=== PATIENT | female | born 1995 | race Caucasian/White ===

== ENCOUNTER 2021-12-29 05:51 | Inpatient (IN) ==
[2021-12-29] MEDS ORDERED: SCOPOLAMINE 1.5 MG PATCH TRANSDERM ONE (05:57)
[2021-12-29] MEDS ORDERED: HEPARIN 5,000 UNIT/1 ML VIAL ONE (05:57)
[2021-12-29] MEDS ORDERED: PANTOPRAZOLE 40 MG VIAL IV ONE (05:57)
[2021-12-29] MEDS ORDERED: HYOSCYAMINE 0.125 MG TABLET ONE (05:57)
[2021-12-29] MEDS ORDERED: ACETAMINOPHEN INJ 1,000 MG/100 ML VIAL IV ONE ×2 (05:58→06:27)
[2021-12-29] MEDS ORDERED: cefOXitin 3,000 MG in SYRINGE 1 EACH IV ONE (06:00)
[2021-12-29] MEDS ORDERED: LACTATED RINGERS 1,000 ML IV SCH (06:00)
[2021-12-29] MEDS ORDERED: SCOPOLAMINE 1.5 MG PATCH TRANSDERM STA (06:27)
[2021-12-29] MEDS ORDERED: HYOSCYAMINE 0.125 MG TABLET PO STA (06:27)
[2021-12-29] MEDS ORDERED: HEPARIN 5,000 UNIT/1 ML VIAL SUBCUT STA (06:29)
[2021-12-29] MEDS ORDERED: PANTOPRAZOLE 40 MG VIAL IV STA (06:29)
[2021-12-29] MEDS ORDERED: ONDANSETRON 4 MG/2 ML VIAL ONE (06:34)
[2021-12-29] MEDS ORDERED: propofoL 200 MG/20 ML VIAL IV ONE (06:34)
[2021-12-29] MEDS ORDERED: LIDOCAINE 2% 5 ML VIAL ONE (06:34)
[2021-12-29] MEDS ORDERED: ROCURONIUM 50 MG/5 ML VIAL IV ONE (06:34)
[2021-12-29] MEDS ORDERED: DEXAMETHASONE 4 MG/1 ML VIAL ONE (06:34)
[2021-12-29] MEDS ORDERED: fentaNYL 100 MCG/2 ML VIAL ONE ×2 (06:35→07:39)
[2021-12-29] MEDS ORDERED: MIDAZOLAM 2 MG/2 ML VIAL ONE (06:35)
[2021-12-29] MEDS ORDERED: GABAPENTIN 400 MG CAPSULE PO ONE (06:37)
[2021-12-29] MEDS ORDERED: DIAZEPAM 5 MG TABLET PO ONE (06:37)
[2021-12-29] MEDS ORDERED: FAMOTIDINE 20 MG TABLET PO ONE (06:37)
[2021-12-29] MEDS ORDERED: BUPIVACAINE MPF 0.25% 10 ML VIAL ONE (06:43)
[2021-12-29] MEDS ORDERED: LIDOCAINE 1%/EPI INJ 20 ML VIAL ONE (06:43)
[2021-12-29] MEDS ORDERED: TISSUE ADHESIVE 1 EACH APPLICATOR TOP ONE (06:43)
[2021-12-29] MEDS ORDERED: BUPIVACAINE LIPOSOMAL 20 ML/266 MG VIAL ONE (06:44)
[2021-12-29] MEDS ORDERED: INDOCYANINE GREEN 25 MG VIAL IV ONE (08:01)
[2021-12-29] MEDS ORDERED: NEOSTIGMINE 10 MG/10 ML VIAL ONE (08:11)
[2021-12-29] MEDS ORDERED: SEVOFLURANE 1 UNIT/15 MINUTE INH ONE (08:16)
[2021-12-29] MEDS ORDERED: PROMETHAZINE 25 MG/1 ML VIAL ONE (08:43)
[2021-12-29] MEDS ORDERED: ONDANSETRON 4 MG/2 ML VIAL IV PRN ×2 (08:44→09:04)
[2021-12-29] MEDS ORDERED: diphenhydrAMINE 50 MG/1 ML VIAL IV PRN (08:44)
[2021-12-29] MEDS ORDERED: HYDROmorphone 1 MG/1 ML SYRINGE IV PRN (08:44)
[2021-12-29] MEDS ORDERED: PROMETHAZINE INJ 25 MG in SODIUM CHLORIDE 0.9% 50 ML IV PRN (08:44)
[2021-12-29] MEDS ORDERED: MEPERIDINE 50 MG/1 ML VIAL ONE (08:52)
[2021-12-29] MEDS: MEPERIDINE 25 MG/1 ML VIAL IV PRN ×2 (09:00→09:15)
[2021-12-29] MEDS ORDERED: MORPHINE 2 MG/1 ML SYRINGE IV PRN (09:04)
[2021-12-29] MEDS ORDERED: hydrALAZINE 20 MG/1 ML VIAL IV PRN (09:04)
[2021-12-29] MEDS ORDERED: GLUCAGON 1 MG VIAL IM PRN (09:06)
[2021-12-29] MEDS: LACTATED RINGERS 1,000 ML IV SCH ×3 (09:13→22:46)
[2021-12-29] MEDS ORDERED: DEXTROSE 10% 250 ML BAG IV PRN (11:09)
[2021-12-29] MEDS: HYDROcod/ACETAMIN 7.5-325 MG/15 ML UDCUP PO PRN ×2 (14:30→17:49)
[2021-12-29] MEDS: ceFAZolin 2,000 MG/50 ML DUPLEX IV SCH ×2 (15:36→23:08)
[2021-12-29] MEDS: PROMETHAZINE 25 MG/1 ML VIAL IM SCH ×3 (16:10→21:43)
[2021-12-29] MEDS: INSULIN LISPRO 100 UNIT/ML SUBCUT SCH ×2 (18:05→22:43)
[2021-12-30] MEDS: LACTATED RINGERS 1,000 ML IV SCH ×4 (02:35→10:24)
[2021-12-30] MEDS: PROMETHAZINE 25 MG/1 ML VIAL IM SCH ×3 (02:35→09:11)
[2021-12-30 04:51] LABS: Basophils % 0.2 % (0.0-0.8); Hematocrit 38.5 VOL% (35.7-47.0); Hemoglobin 12.4 GM/DL (12.0-16.0); Immature Granulocytes % 0.4 %; Immature Granulocytes Absolute 0.04 #; Lymphocytes # 2.1 10*3/uL (1.4-4.0); Mean Corpuscular HGB Conc 32.2 GM/DL (32-36); Mean Corpuscular Volume 85.6 FL (87-102); Mean Platelet Volume 11.3 FL (9.6-12.0); Monocytes # 0.7 10*3/uL (0.11-0.8); Monocytes % 5.9 % (1.7-12.7); Neutrophils % 74.5 % (38.7-73.9); Platelet Count 234 T/CUMM (130-400); Red Cell Distribution Width 13.2 % (9.3-17.3); White Blood Count 11.2 T/CUMM (4-12)
[2021-12-30 05:06] LABS: Calcium 8.8 MG/DL (8.5-10.1); Osmolality,Calculated 276.4 MOS/KG (273-304); Potassium 3.9 MMOL/L (3.5-5.1)
[2021-12-30 08:11] VITALS: BP 132/75
[2021-12-30] MEDS ORDERED: PANTOPRAZOLE 40 MG VIAL IV SCH (09:00)
[2021-12-30] MEDS: INSULIN LISPRO 100 UNIT/ML SUBCUT SCH (10:20)
[2021-12-30] MEDS ORDERED: SIMETHICONE CHEW 80 MG TABLET PO SCH (15:00)
[2021-12-31] MEDS ORDERED: ENOXAPARIN 40 MG/0.4 ML SYRINGE SUBCUT SCH (09:00)
== END 2021-12-30 11:20 | disposition home or self-care (01) | DRG 621 ==
LOC: N.SDSINP 05:51 → N.3E 16:41
PROVIDERS: ADMIT Surgery; ATTEND Surgery